=== PATIENT | male | born 1990 ===

== ENCOUNTER 2023-03-08 17:39 | Outpatient (REF) | payer OTHER, SELFPAY ==
[2023-03-16 09:13] LABS: Testosterone, Free 5.74 ng/dL (4.85-19.0); Testosterone, Total 191 ng/dL (240-950)
== END 2023-03-08 17:40 | disposition home or self-care (01) ==
LOC: NCHCN 17:39
PROVIDERS: Visit Provider Physician Assistant
DX: E29.1 Testicular hypofunction (principal)
CPT/HCPCS: 84402; 84403